=== PATIENT | male | born 1990 | race African-American/Black ===

== ENCOUNTER 2018-02-06 21:34 | Emergency (ER) | payer OTHER ==
[~2018-02-06] VITALS: Ht 188 cm; Wt 99.8 kg
--- NOTE | 2018-02-06 21:50 | NUR ---
PT BIB SELF C/O R SDIED CHEST WALL/UPPER ABD PRESSURE X5-6 WEEKS INTERMITTENTLY, GRADUALLY INCREASING. DENIES N/V/D. SKIN WARM DRY. RESP EVEN UNLABORED. NO RADIATION, NO PROVOCATION. AMBULATORY STEADY GAIT. IN ER BED 09 ON MONITOR.
[2018-02-06] MEDS ORDERED: KETOROLAC TROMETHAMINE INJ 30 MG/ML VIAL ONE (22:34)
[2018-02-06] MEDS ORDERED: ASPIRIN 81 MG TAB.CHEW ONE (22:35)
[2018-02-06] MEDS: ASPIRIN 81 MG TAB.CHEW PO ONE (22:41)
[2018-02-06] MEDS: KETOROLAC TROMETHAMINE INJ 30 MG/ML VIAL IV ONE (22:41)
[2018-02-06 22:58] LABS: BASOPHILS # (AUTO) 0.1 /CMM (0.0-0.2); BASOPHILS % (AUTO) 0.6 % (0.0-2.0); EOSINOPHILS % (AUTO) 2.2 % (0.0-6.0); HEMATOCRIT 49 % (39-51); HEMOGLOBIN 16.6 g/dL (13.5-17.5); LYMPHOCYTES # (AUTO) 2.3 /CMM (0.8-4.8); LYMPHOCYTES % (AUTO) 21.1 % (20.0-44.0); MEAN CORPUSCULAR HEMOGLOBIN 28 PG (26.0-33.0); MEAN CORPUSCULAR HGB CONC 34 g/dl (31.0-36.0); MEAN CORPUSCULAR VOLUME 83 fL (80-96); MONOCYTES # (AUTO) 0.7 /CMM (0.1-1.30); MONOCYTES % (AUTO) 6.2 % (2.0-12.0); NEUTROPHILS # (AUTO) 7.6 /CMM (1.8-8.9); NEUTROPHILS % (AUTO) 69.9 % (43.0-81.0); PLATELET COUNT (AUTO) 226 /CMM (150-450); RDW COEFFICIENT OF VARIATION 13.1 (11.5-15.0); RED BLOOD CELL COUNT(AUTO) 5.86 MIL/uL (4.5-6.0); WHITE BLOOD COUNT (AUTO) 10.9 K/uL (4.3-11.0)
[2018-02-06 23:12] LABS: INR 0.97 (0.87-1.13)
[2018-02-06 23:21] LABS: ALBUMIN 4.1 g/dL (3.4-5.0); BILIRUBIN,DIRECT 0.1 mg/dL (0.0-0.2); BILIRUBIN,TOTAL 0.7 mg/dL (0.2-1.0); CALCIUM, SERUM 8.8 mg/dL (8.5-10.1); POTASSIUM 4.5 mmol/L (3.5-5.1); TOTAL PROTEIN, SERUM 7.3 g/dL (6.4-8.2)
--- NOTE | 2018-02-07 00:02 | NUR ---
RESTING QUIETLY, NAD NOTED. ALL NEEDS ATTENDED TO. AWAITING DISPO.
--- NOTE | 2018-02-07 01:00 | NUR ---
Patient discharged to home in stable condition. Written and verbal after care instructions given. Patient verbalizes understanding of instruction. IV removed. Catheter intact and site benign. Pressure and 4x4 applied to site. No bleeding noted.
[2018-02-07 01:18] VITALS: BP 142/80
== END 2018-02-07 01:18 | disposition home or self-care (01) ==
LOC: ER 21:41
DX: R10.11 Right upper quadrant pain (principal)
CPT/HCPCS: 36415; 71045-TC; 76705-TC; 80048-TC; 80076-TC; 83690-TC; 84484-TC; 85025-TC; 85730-TC; A4606; J1885; Z7610